=== PATIENT | male | born 1950 | race American Indian/Alaskan Native ===

== ENCOUNTER 2017-09-29 06:02 | Day surgery (SDC) | payer MEDICARE ==
[2017-09-29] MEDS ORDERED: WATER FOR IRRIG STERILE IR ONE (07:30)
[2017-09-29] MEDS ORDERED: WATER FOR IRRIG STERILE ONE (07:30)
[2017-09-29] MEDS ORDERED: DIPRIVAN 10 MG/ML IV ONE ×3 (07:52→08:34)
[2017-09-29] MEDS ORDERED: NACL 0.9% 1000 ML 1,000 ML IV SCH (08:00)
--- NOTE | 2017-09-29 08:50 | Discharge Summary ---
Short Stay Discharge Plan Activity: other (october d/c when stable. continue cl liq. for [facility] in am. rto wednesday) Weight Bearing Status: Partial Weight Bearing Diet: other Follow up with: KUSH MOORE MD [Staff Physician] - 10/04/17
[2017-09-29 09:13] VITALS: BP 111/75
--- NOTE | 2017-09-29 09:21 | Operative Report ---
PROCEDURE: Screening colonoscopy. FINDINGS: Small, flat, probable hyperplastic polyp in the sigmoid colon, very few scattered diverticula. The scope was looping extensively in the sigmoid colon as well as the transverse colon and only the very proximal ascending colon was able to be clearly visualized to my satisfaction, just proximal to the hepatic flexure. Thus, barium enema will also be performed tomorrow to complete the study. Biopsies were also obtained of the flat polyp area. DESCRIPTION OF PROCEDURE: The patient was taken to the GI suite, placed in left lateral decubitus position. Anus was inspected and no thrombosed external hemorrhoids noted. Rectal exam was performed and no palpable masses. The colonoscope was then introduced and gently advanced up just proximal to the hepatic flexure. The entire transverse colon as well as descending colon, sigmoid colon and rectum was visualized. Retroflexion of the scope at the end revealed small external hemorrhoids. A few scattered diverticula were noted throughout, but no gross pathology. A flat what appeared to be a small hyperplastic polyp was noted in the area of the distal sigmoid, around 20 cm. Two how biopsies were performed of this polyp. The area was then inspected for any oozing or bleeding and noted to be dry. The patient tolerated the procedure well and left the GI suite in stable condition. We will wait 24 hours due to the hot biopsy and tomorrow morning, we will proceed with barium enema to complete the patient's workup. JOB# [id number]/DAVID
--- NOTE | 2017-09-29 10:01 | Anesthesia Day of Surgery ---
Anesthesia Day of Surgery - Day of Surgery Patient Examined: Yes Patient H&P Reviewed: Yes Patient is NPO: Yes
--- NOTE | 2017-09-29 10:01 | Anesthesia Consultation ---
Anesthesia Consult and Med Hx Date of service: 09/29/17 - Airway Anesthetic Teeth Evaluation: Good ROM Head & Neck: Adequate Mental/Hyoid Distance: Adequate Mallampati Class: Class II Intubation Access Assessment: Probably Good - Pulmonary Exam CTA: Yes - Cardiac Exam Cardiac Exam: RRR - Pre-Operative Health Status ASA Pre-Surgery Classification: ASA2 Proposed Anesthetic Plan: MAC - Pre-Anesthesia Comment Pre-Anesthesia Comments: hiatal hernia - Cardiovascular System Hx Hypertension: Yes
[2017-09-29] MEDS ORDERED: XYLOCAINE MPF 2% ONE (11:37)
== END 2017-09-29 06:03 | disposition home or self-care (01) ==
LOC: GIO 06:02
PROVIDERS: ATTEND Surgery
DX: Z12.11 Encounter for screening for malignant neoplasm of colon (principal); D12.5 Benign neoplasm of sigmoid colon; K57.30 Diverticulosis of large intestine without perforation or abscess without bleeding; I10 Essential (primary) hypertension; Z98.890 Other specified postprocedural states
CPT/HCPCS: 45380; 88305; J2704; J7030

== ENCOUNTER 2017-09-30 07:14 | Outpatient (CLI) | payer MEDICARE ==
--- NOTE | 2017-09-30 10:25 | Fluoroscopy Report ---
DOUBLE CONTRAST BARIUM ENEMA INDICATION: Colon screening, incomplete colonoscopy. COMPARISON: None similar at this institution. FINDINGS: Preliminary radiograph demonstrates a nonobstructive bowel gas pattern. Iliac enthesophytes. Using fluoroscopic guidance, the entire colon filled in retrograde fashion with barium and air. Flocculated barium partly limits exam. The colonic caliber and mucosal pattern are normal in appearance. No constricting lesions or fixed intraluminal masses identified. Few ascending and transverse colon diverticuli. Transverse colon mildly redundant. Appendix opacified. CONCLUSION: Mild diverticulosis; otherwise unremarkable air contrast barium enema. Thank you for the opportunity to participate in this patient's care.
== END 2017-09-30 07:15 | disposition home or self-care (01) ==
LOC: XRAY 07:14 → FLUORO 07:14
PROVIDERS: ATTEND Surgery
DX: Z12.11 Encounter for screening for malignant neoplasm of colon (principal); K57.30 Diverticulosis of large intestine without perforation or abscess without bleeding
CPT/HCPCS: 74280